=== PATIENT | female | born 1960 | race Hispanic/Latino ===

== ENCOUNTER 2019-05-09 04:45 | Emergency (ER) | payer OTHER ==
[2019-05-09] MEDS ORDERED: MORPHINE 2 MG/1 ML INJ IV ONE (05:19)
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
[2019-05-09 06:52] LABS: Basophils # (Auto) 0.1 K/mm3 (0.0-0.1); Basophils % (Auto) 0.7 % (0.0-1.8); Eosinophils # (Auto) 0.1 K/mm3 (0.0-0.4); Eosinophils % (Auto) 0.9 % (0.0-4.3); Hemoglobin 13.5 gm/dl (10.1-14.3); Lymphocytes # (Auto) 0.9 K/mm3 (1.2-5.4); Lymphocytes % (Auto) 10.9 % (13.4-35.0); Mean Corpuscular HGB Conc 34 % (30-34); Mean Corpuscular Volume 87 fl (79-97); Monocytes # (Auto) 0.7 K/mm3 (0.0-0.8); Monocytes % (Auto) 8.6 % (0.0-7.3); Platelet Count 221 K/mm3 (140-440); Red Cell Distribution Width 13.3 % (13.2-15.2)
[2019-05-09 07:00] LABS: Alanine Aminotransferase 10 units/L (7-56); Albumin 3.7 g/dL (3.9-5); BUN/Creatinine Ratio 20; Blood Urea Nitrogen 18 mg/dL (7-17); Calcium 8.4 mg/dL (8.4-10.2); Hemolysis Index 3
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
[2019-05-09 07:03] LABS: Bilirubin,Direct < 0.2 mg/dL (0-0.2)
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
[2019-05-09] MEDS ORDERED: MORPHINE 4 MG/1 ML INJ IV ONE (07:15)
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
[2019-05-09 09:58] VITALS: BP 154/69
== END 2019-05-09 10:03 | disposition home or self-care (01) ==
LOC: ED 04:45
DX: M54.9 Dorsalgia, unspecified (principal); R10.84 Generalized abdominal pain; I10 Essential (primary) hypertension; E11.9 Type 2 diabetes mellitus without complications; F17.200 Nicotine dependence, unspecified, uncomplicated; R51 Headache; V49.49XA Driver injured in collision with other motor vehicles in traffic accident, initial encounter; Y93.89 Activity, other specified; Y92.89 Other specified places as the place of occurrence of the external cause; Y99.8 Other external cause status
CPT/HCPCS: 36415; 70450; 72070; 72100; 72125; 73562; 74177; 80048; 80076; 85025; 96374; 96376; 99285; J2270; Q9967